=== PATIENT | female | born 1960 | race Caucasian/White ===

== ENCOUNTER 2017-01-18 13:10 | Emergency (ER) | payer BC ==
[~2017-01-18] VITALS: Ht 162.6 cm; Wt 77.0 kg
[~2017-01-18 13:10] MED LIST: ASPI81TA3 PO; ATOR10TA65 PO; CLIN-73 PO; HYDR-3498 PO; IBUP-1542 PO; PRED20TA PO
[2017-01-18 13:27] VITALS: Ht 162.6 cm; Wt 77.0 kg
[2017-01-18] MEDS ORDERED: PRED20TA PO (15:34)
[2017-01-18] MEDS ORDERED: predniSONE 20 MG TAB PO ONE (16:00)
--- NOTE | 2017-01-18 16:06 | ERD ---
ER Documentation Chief Complaint Date/Time DATE: 01/18/17 TIME: 16:04 Chief Complaint LEFT LOWER QUADRANT PAIN,HX OF PANCREATITIS HPI Patient is a 56-year-old female with history of previous pancreatitis who presents with itching. She has had 2 days of itching and redness to the abdomen bilaterally. She had pain with palpation of her abdomen as well. She says that the skin feels inflamed. She has had no fevers. She had this once before when she had an allergic reaction. Upon review of old medical records this is the patient's ninth visit to the ER since 2010. Her primary doctor is Dr. Euceda. ROS All systems reviewed and are negative except as per history of present illness. Medications Home Meds Active Scripts Prednisone* (Prednisone*) 20 Mg Tab, 60 MG PO DAILY for 4 Days, TAB Prov:MEI BOOKER MD 01/18/17 Hydrocodone Bit-Acetaminophen* ([place]*) 5-325 Mg Tab, 1 TAB PO Q6 Y for PAIN, # 7 TAB Prov:ANA CRISTINA LEA PA-C 04/06/16 Ibuprofen* (Motrin*) 600 Mg Tab, 600 MG PO Q6, #30 TAB Prov:ANA CRISTINA LEA PA-C 04/06/16 Clindamycin Hcl* (Clindamycin Hcl*) 300 Mg Capsule, 300 MG PO TID for 10 Days, CAP Prov:ANA CRISTINA LEA PA-C 04/06/16 Hydrocodone Bit-Acetaminophen* ([place]*) 5-325 Mg Tab, 1 TAB PO QHS Y for PAIN, # 7 TAB 0 Refills Prov:LIZANDRO LINK PA-C 03/30/16 Prednisone* (Prednisone*) 20 Mg Tab, 40 MG PO DAILY for 4 Days, #8 TAB 0 Refills Prov:LIZANDRO LINK PA-C 03/30/16 Ibuprofen* (Motrin*) 600 Mg Tab, 600 MG PO Q8, #30 TAB 0 Refills Prov:LIZANDRO LINK PA-C 03/30/16 Atorvastatin (Atorvastatin) 10 Mg Tablet, 10 MG PO QHS for 30 Days, #30 TAB 1 Refill Prov:PEDRITO CUMMINGS MD 03/19/16 Aspirin (Aspirin) 81 Mg Chew, 81 MG PO DAILY for 30 Days, #30 TAB 1 Refill Prov:PEDRITO CUMMINGS MD 03/19/16 Allergies Allergies: Coded Allergies: Penicillins (Verified Allergy, Mild, 05/26/11) PMhx/Soc History of Surgery: Yes Anesthesia Reaction: No Hx Neurological Disorder: No Hx Respiratory Disorders: Yes (seen here last week for resp infection) Hx Cardiac Disorders: No Hx Psychiatric Problems: No Hx Miscellaneous Medical Probl: Yes (Cholecystectomy) Hx Alcohol Use: Yes Hx Substance Use: No Hx Tobacco Use: No FmHx Family History: diabetes Physical Exam Vitals Vital Signs Date Time Temp Pulse Resp B/P Pulse Ox O2 Delivery O2 Flow Rate FiO2 01/18/17 13:27 97.8 59 18 152/66 98 Physical Exam Const: No acute distress Head: Atraumatic Eyes: Normal Conjunctiva ENT: Normal External Ears, Nose and Mouth. Neck: Full range of motion..~ No meningismus. Resp: Clear to auscultation bilaterally Cardio: Regular rate and rhythm, no murmurs Abd: Soft, non tender, non distended. Normal bowel sounds Skin: Erythematous rash to the bilateral abdomen which blanches with palpation , no petechiae or purpura, appears more allergic than cellulitic Back: No midline or flank tenderness Ext: No cyanosis, or edema Neur: Awake and alert Psych: Normal Mood and Affect Results 24 hrs Current Medications Medications (Trade) Dose Ordered Sig/Lo Route PRN Reason Start Time Stop Time Status Last Admin Dose Admin Prednisone (Prednisone) 60 mg ONCE ONCE PO 01/18/17 16:00 01/18/17 16:01 DC 01/18/17 15:38 Procedures/MDM Patient is a 56-year-old female presents with what appears to be allergic reaction to the skin of her abdomen. She does not know what would have started it. She has had no new soaps, lotions, or medicines. The patient has already tried Benadryl. The patient will be discharged with a prescription for prednisone. The patient will be given prednisone in the ER and then 4 more days. The patient can take Benadryl as needed. Patient can return for any worsening symptoms. At this point I doubt intra-abdominal process such as pancreatitis, appendicitis, cholecystitis, or bowel obstruction. The patient should follow-up with a primary doctor within 24-48 hours. Departure Diagnosis: Primary Impression: Allergic reaction Encounter type: initial encounter Qualified Code: T78.40XA - Allergic reaction, initial encounter Additional Impression: Abdominal pain Abdominal location: generalized Qualified Code: R10.84 - Generalized abdominal pain Condition: Fair Patient Instructions: First Aid: Allergic Reactions Additional Instructions: Llame al doctor MAANA y debra nataly ELKIN PARA DENTRO DE 1-2 KOEHLER.Dgale a la secretaria que nosotros le instruimos hacer esta elkin.Avise o llame si lipscomb condicin se empeora antes de la elkin. Regresa aqui si peor o no mejor. MEI BOOKER MD Jan 18, 2017 16:06
== END 2017-01-18 15:51 | disposition home or self-care (01) ==
LOC: E/R 13:10
DX: L29.8 Other pruritus (principal); R10.84 Generalized abdominal pain; Z79.82 Long term (current) use of aspirin
CPT/HCPCS: 99283; J7512

== ENCOUNTER 2018-11-12 03:34 | Emergency (ER) | payer BC ==
[~2018-11-12] VITALS: Ht 160 cm; Wt 67.3 kg
[~2018-11-12 03:34] MED LIST changes: +ASPI-831 PO; -ASPI81TA3 PO; -CLIN-73 PO; +CLIN300C10 PO
[2018-11-12 03:37] VITALS: Ht 160 cm; Wt 67.3 kg
[2018-11-12] MEDS ORDERED: CIPR500T4 PO (06:54)
--- NOTE | 2018-11-12 07:15 | ERD ---
ER Documentation Chief Complaint Chief Complaint ABD BLOATING WITH PAIN IN URINATION AND BLOOD IN URINE X1DAY HPI 58-year-old female presenting with suprapubic tenderness and dysuria. Patient states she has had symptoms for the last 2 days. Denies any back pain. Denies fever. Denies hematuria. Denies abdominal pain. Denies other medical problems. NKDA. Surgical history denies. Social history denies ROS All systems reviewed and are negative except as per history of present illness. Medications Home Meds Active Scripts Ciprofloxacin Hcl* (Ciprofloxacin Hcl*) 500 Mg Tablet, 500 MG PO BID for 7 Days, TAB Prov:JOHN BAILEY PA-C 11/12/18 Prednisone* (Prednisone*) 20 Mg Tab, 60 MG PO DAILY for 4 Days, TAB Prov:MEI BOOKER MD 01/18/17 Hydrocodone Bit-Acetaminophen* ([place]*) 5-325 Mg Tab, 1 TAB PO Q6 PRN for PAIN, #7 TAB Prov:ANA CRISTINA LEA PA-C 04/06/16 Ibuprofen* (Motrin*) 600 Mg Tab, 600 MG PO Q6, #30 TAB Prov:ANA CRISTINA LEA PA-C 04/06/16 Clindamycin Hcl* (Clindamycin Hcl*) 300 Mg Capsule, 300 MG PO TID for 10 Days, CAP Prov:ANA CRISTINA LEA PA-C 04/06/16 Hydrocodone Bit-Acetaminophen* ([place]*) 5-325 Mg Tab, 1 TAB PO QHS PRN for PAIN, #7 TAB 0 Refills Prov:LIZANDRO LINK PA-C 03/30/16 Prednisone* (Prednisone*) 20 Mg Tab, 40 MG PO DAILY for 4 Days, #8 TAB 0 Refills Prov:LIZANDRO LINK PA-C 03/30/16 Ibuprofen* (Motrin*) 600 Mg Tab, 600 MG PO Q8, #30 TAB 0 Refills Prov:LIZANDRO LINK PA-C 03/30/16 Atorvastatin (Atorvastatin) 10 Mg Tablet, 10 MG PO QHS for 30 Days, #30 TAB 1 Refill Prov:PEDRITO CUMMINGS MD 03/19/16 Aspirin (Aspirin) 81 Mg Chew, 81 MG PO DAILY for 30 Days, #30 TAB 1 Refill Prov:PEDIRTO CUMMINGS MD 03/19/16 Allergies Allergies: Coded Allergies: Penicillins (Verified Allergy, Mild, 05/26/11) PMhx/Soc History of Surgery: Yes Anesthesia Reaction: No Hx Neurological Disorder: No Hx Respiratory Disorders: Yes (seen here last week for resp infection) Hx Cardiac Disorders: No Hx Psychiatric Problems: No Hx Miscellaneous Medical Probl: Yes (Cholecystectomy) Hx Alcohol Use: Yes Hx Substance Use: No Hx Tobacco Use: No FmHx Family History: No diabetes, No coronary disease, No other Physical Exam Vitals Vital Signs Date Temp Pulse Resp B/P (MAP) Pulse Ox O2 O2 Flow FiO2 Time Delivery Rate 11/12/18 98.7 70 18 146/86 97 03:37 (106) Physical Exam GENERAL: The patient is well-appearing, well-nourished, in no acute distress CHEST: Clear to auscultation bilaterally. There are no rales, wheezes or rhonchi. HEART: Regular rate and rhythm. No murmurs, clicks, rubs or gallops. No S3 or S4. ABDOMEN:Soft, nontender and nondistended. Good bowel sounds. No rebound or guarding. No gross peritonitis. No gross organomegaly or masses. No Melendez sign or McBurney point tenderness. BACK: No midline or flank tenderness. Results 24 hrs Laboratory Tests Test 11/12/18 06:43 Bedside Urine pH (LAB) 6.0 Bedside Urine Protein (LAB) Negative Bedside Urine Glucose (UA) Negative Bedside Urine Ketones (LAB) Negative Bedside Urine Blood 3+ Bedside Urine Nitrite (LAB) Negative Bedside Urine Leukocyte Esterase (L 3+ Procedures/MDM ER course: Urine shows signs of infection. MDM: 58-year-old female presenting with dysuria. Patient's urine was positive for infection. Patient is discharged with antibiotics. I have low suspicion for pyelonephritis. I have low suspicion for acute abdominal emergency or pelvic emergency. Patient is discharged stricter precautions and told to follow-up with primary care within 1-2 days for close evaluation. Patient is told symptoms change or worsen to immediately return to the ER. All questions answered at discharge Departure Diagnosis: Primary Impression: UTI (urinary tract infection) Condition: Stable Patient Instructions: Understanding Urinary Tract Infections (UTIs) Referrals: [facility] YOU HAVE RECEIVED A MEDICAL SCREENING EXAM AND THE RESULTS INDICATE THAT YOU DO NOT HAVE A CONDITION THAT REQUIRES URGENT TREATMENT IN THE EMERGENCY DEPARTMENT. FURTHER EVALUATION AND TREATMENT OF YOUR CONDITION CAN WAIT UNTIL YOU ARE SEEN IN YOUR DOCTORS OFFICE WITHIN THE NEXT 1-2 DAYS. IT IS YOUR RESPONSIBILITY TO MAKE AN APPOINTMENT FOR FOLOW-UP CARE. IF YOU HAVE A PRIMARY DOCTOR --you should call your primary doctor and schedule an appointment IF YOU DO NOT HAVE A PRIMARY DOCTOR YOU CAN CALL OUR PHYSICIAN REFERRAL HOTLINE AT IF YOU CAN NOT AFFORD TO SEE A PHYSICIAN YOU CAN CHOSE FROM THE FOLLOWING [facility] [address] [facility] [address] [facility] [address] [facility] [address] [facility] [address] [facility] [facility]. [address] Additional Instructions: FOLLOW UP WITH YOUR PRIMARY CARE PHYSICIAN TOMORROW.Return to this facility if you are not improving as expected. JOHN BAILEY PA-C Nov 12, 2018 07:15
== END 2018-11-12 07:27 | disposition home or self-care (01) ==
LOC: FTE 03:34
DX: N39.0 Urinary tract infection, site not specified (principal); Z79.84 Long term (current) use of oral hypoglycemic drugs
CPT/HCPCS: 81003; 99283